=== PATIENT | male | born 1955 | race Caucasian/White ===

== ENCOUNTER 2018-11-16 07:35 | Day surgery (SDC) | payer OTHER ==
[~2018-11-16 07:35] MED LIST: ACETAMINOPHEN 500 MG TAB PO
[2018-11-16] MEDS ORDERED: ACETAMINOPHEN 500 MG TAB (08:14)
[2018-11-16] MEDS ORDERED: METOCLOPRAMIDE 10 MG INJ (08:14)
[2018-11-16] MEDS ORDERED: OXYCODONE/ACETAMINOPHEN (5/325) TAB PO ×4 (08:30→11:30)
[2018-11-16] MEDS ORDERED: ONDANSETRON 4 MG INJ IV ×2 (08:30→11:30)
[2018-11-16] MEDS ORDERED: DIPHENHYDRAMINE 50 MG INJ IV (08:30)
[2018-11-16] MEDS ORDERED: METOCLOPRAMIDE 10 MG INJ IV (08:30)
[2018-11-16] MEDS ORDERED: morphine 2 MG INJ IV ×3 (08:30→11:30)
[2018-11-16] MEDS ORDERED: HYDROmorphONE 1 MG/5 ML IV SYRINGE IV ×3 (08:30)
[2018-11-16] MEDS ORDERED: LABETALOL HCL 20MG INJ IV (08:30)
[2018-11-16] MEDS ORDERED: MEPERIDINE 25 MG INJ IV (08:30)
[2018-11-16] MEDS ORDERED: ALBUTEROL 0.083% (NEB) 2.5 MG/3 ML AMP HHN (08:30)
[2018-11-16] MEDS ORDERED: FENTAnyl 50 MCG/ML VIAL IV ×2 (08:30)
[2018-11-16] MEDS ORDERED: ONDANSETRON 4 MG INJ (08:48)
[2018-11-16] MEDS ORDERED: LIDOCAINE 2% (SDV) 5 ML INJ (08:48)
[2018-11-16] MEDS ORDERED: PROPOFOL 40 ML ×3 (08:48→10:10)
[2018-11-16] MEDS ORDERED: MAGNESIUM SULFATE 1 GM/D5W 100 ML (08:48)
[2018-11-16] MEDS ORDERED: MIDAZOLAM 1 MG/ML 2 ML INJ (08:48)
[2018-11-16] MEDS ORDERED: FAMOTIDINE 20 MG INJ (08:49)
[2018-11-16] MEDS ORDERED: CEFAZOLIN 1 GM INJ (08:49)
[2018-11-16] MEDS ORDERED: KETAMINE (50 MG/ML) 10 ML VIAL (08:55)
[2018-11-16] MEDS: ROPIVACAINE 0.5 % 30 ML VIAL (09:06)
[2018-11-16] MEDS ORDERED: METOPROLOL 5 MG INJ (10:09)
[2018-11-16] MEDS ORDERED: KETOROLAC 30 MG INJ (11:05)
[2018-11-16] MEDS ORDERED: SOD CHLORIDE 0.9% 1,000 ML IV (11:25)
== END 2018-11-16 14:16 | disposition home or self-care (01) ==
LOC: SDS 07:35
DX: S83.272D Complex tear of lateral meniscus, current injury, left knee, subsequent encounter (principal); X58.XXXD Exposure to other specified factors, subsequent encounter; M94.212 Chondromalacia, left shoulder; M23.42 Loose body in knee, left knee
CPT/HCPCS: 29881